=== PATIENT | female | born 2005 | race American Indian/Alaskan Native ===

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

== ENCOUNTER 2025-02-23 23:36 | Emergency (ER) | payer MEDICAID ==
[2025-02-24] MEDS: Ondansetron 4 MG/2 ML SDV IVPUSH ONE (00:50)
[2025-02-24 01:01] LABS: APPEARANCE,URINE CLOUDY (CLEAR); GLUCOSE,URINE NEGATIVE (NEGATIVE); OCCULT BLOOD,URINE LARGE (NEGATIVE)
[2025-02-24 01:01] LABS: PLATELET COUNT,PLT 224 10^3/uL (150-450); RED BLOOD CELL COUNT 4.76 10^6/uL (4.2-5.4); WHITE BLOOD CELL COUNT,WBC 13.9 10^3/uL (5.0-10.0)
[2025-02-24 01:03] LABS: AMPHETAMINES,URINE NEGATIVE (NEGATIVE); BARBITURATES,URINE NEGATIVE (NEGATIVE); MDMA (ECSTASY), URINE NEGATIVE (NEGATIVE); METHAMPHETAMINES,URINE NEGATIVE (NEGATIVE); OPIATES,URINE NEGATIVE (NEGATIVE); OXYCODONE,URINE NEGATIVE (NEGATIVE); PHENCYCLIDINE,URINE NEGATIVE (NEGATIVE); TCA,URINE NEGATIVE (NEGATIVE)
[2025-02-24 01:04] LABS: BASOPHILS PERCENT AUTO 0.1 % (0.0-1.0); EOSINOPHILS PERCENT AUTO 0.8 % (1.0-3.0); LYMPHOCYTES PERCENT AUTO 9.1 % (20.5-50.1); MONOCYTES PERCENT AUTO 11.3 % (2-8); NEUTROPHILS PERCENT AUTO 78.7 % (42.2-75.2)
[2025-02-24 01:06] LABS: LACTIC ACID 1.0 mmol/L (0.4-2.0)
[2025-02-24 01:09] LABS: A/G RATIO 0.8; ALANINE AMINOTRANSFERASE,ALT 161 U/L (14-59); ASPARTATE AMNIOTRANSFERASE,AST 106 U/L (15-37); BILIRUBIN TOTAL 0.6 mg/dL (0.2-1.0); BLOOD UREA NITROGEN,BUN 9 mg/dL (7-18); CARBON DIOXIDE,CO2 25 mmol/L (21-32); CHLORIDE,CL 96 mmol/L (98-107); CREATININE 0.91 mg/dL (0.55-1.02); EST CRCL DRUG DOSING (CG) 78.64 mL/min; GLUCOSE RANDOM 115 mg/dL (70-99); POTASSIUM,K 2.8 mmol/L (3.5-5.1); PROTEIN TOTAL,TP 7.6 g/dL (6.4-8.2); SODIUM,NA 133 mmol/L (136-145); TSH ULTRASENSITIVE 0.61 uIU/mL (0.36-3.74)
[2025-02-24 01:14] LABS: ESTIMATED GFR 93 mL/min (>=60)
[2025-02-24 01:18] LABS: EPITHELIAL CELLS,URINE MODERATE /HPF (NOT SEEN)
[2025-02-24 01:21] LABS: ETHANOL BLOOD MEDICAL < 3 mg/dL (0)
[2025-02-24 01:29] LABS: LYMPHOCYTES PERCENT MAN 7 % (20-50); MONOCYTES PERCENT MAN 10 % (2-8); SEG NEUTROPHILS PERCENT MAN 83 % (42-75)
[2025-02-24] MEDS: Take Home: Ondansetron 4 MG Tab.DIS, 5 Tab Pack PO ONE (02:56)
[2025-02-24] MEDS: Take Home: Sulfamethoxazole/Trimethoprim 800-160 MG Tab, 6 Tab Pack PO ONE (02:56)
[2025-02-24 03:07] VITALS: BP 106/55; PULSE 57
== END 2025-02-24 03:09 | disposition home or self-care (01) ==
LOC: DL.ED 23:36
DX: N12 Tubulo-interstitial nephritis, not specified as acute or chronic (principal); Z79.899 Other long term (current) drug therapy
CPT/HCPCS: 36415; 74176; 80053; 80305; 80307; 81001; 81025; 83605; 83690; 83735; 84443; 85025; 87086; 87088; 87186; 93005; 96361; 96374; 96375; 99284; A9270; J0696; J2405; J7030; Q0162; 93010